=== PATIENT | female | born 1935 | race Caucasian/White ===

== ENCOUNTER 2018-06-01 05:39 | Day surgery (SDC) | payer OTHER, MEDICARE ==
[~2018-06-01] VITALS: Ht 157.5 cm; Wt 56.7 kg
--- NOTE | ~2018-06-01 | EKG ---
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
--- NOTE | ~2018-06-01 | O ---
[facility] [place] [address] OPERATIVE REPORT Name: SAVI PARIS Room #: DEP [facility].#: [id number] Admission: 06/01/18 Attend Phys: Jeanmarie Barajas MD Discharge: 06/01/18 Date of : 33 Report #: [id number] THIS REPORT FOR: //name// CC: GABE physician/PCP FAM unknown Jeanmarie Barajas DATE OF SERVICE: 06/01/2018 PREOPERATIVE DIAGNOSIS: Left foot first tarsometatarsal fusion nonunion. POSTOPERATIVE DIAGNOSIS: Left foot first tarsometatarsal fusion nonunion. PROCEDURE: Left foot first TMT revision arthrodesis with hardware removal. SURGEON: Jeanmarie Barajas M.D. TUBE MOLDER FIBERGLASS: Leora Daugherty. ANESTHESIA: General. ESTIMATED BLOOD LOSS: Minimal. DRAINS: No drains. TOURNIQUET TIME: One hour and 15 minutes. DESCRIPTION OF PROCEDURE: The patient was brought to the operating room, where she was placed under general anesthesia. Once under adequate general anesthesia, her left lower extremity was prepped and draped in sterile manner. The extremity was elevated, exsanguinated and tourniquet placed to 300 mmHg. A dorsal incision on the patient's previous scar was then made. This was dissected down through the soft tissue to the dorsum of the foot, where the prior hardware was placed. The dorsal plate and a single 4.0 cannulated screw were then removed utilizing the screwdriver from the [employer] foot tray and 4.0 cannulated sets. Once removed, the first TMT joint was identified and debrided. It was denuded of any soft tissue and the joint was then fenestrated with a K-wire to allow for bleeding. StimuBlast bone graft was then placed into the joint and fixation across the joint was achieved with crossing 4.0 cannulated screws and a dorsal locking plate from the foot tray. Excellent fixation and alignment was achieved in this manner, as verified under fluoroscopy. The wound was then irrigated copiously and closed with 2-0 Vicryl on the subcutaneous tissues and agustin were used for the skin. The wounds were dressed with Xeroform, 4 x 4s, and a sterile soft compressive dressing was placed. Tourniquet was let down at 1 hour and 15 minutes. Toes were pink and warm, with good capillary refill. There were no complications from the procedure. The [address] [address] OPERATIVE REPORT Name: SAVI PARIS Room #: DEP [facility]#: [id number] Admission: 06/01/18 Attend Phys: Jeanmarie Barajas MD Discharge: 06/01/18 Date of : 33 Report #: [id number] patient tolerated the procedure well and went to the recovery room without incident. <ELECTRONICALLY SIGNED> By: Jeanmarie Barajas MD 06/14/18 1235 [id number] Jeanmarie Barajas MD /thais
[~2018-06-01 05:39] MED LIST: ATORVASTATIN CA40 MG PO; CALCIUM 600 +1 EA11 PO; COUMADIN 1MG TAB1 M1 PO; FOSAMAX 70 MG T70 MG PO; HYDROCHLOROTH12.5 M1 PO; LEVOTHYROXIN0.075 MG PO; LISINOPRIL5 MG PO; MAGOX 400400 MG PO; METFORMIN HCL500 MG PO; NEURONTIN 300300 M1 PO; NORCO 10-325 T1 EACH PO; OXYBUTYNIN 5 MG5 M1 PO; POTASSIUM GLUC500 MG PO; PRESERVISION T1 EACH PO; ROBAXIN 750 MG750 M1 PO; VITAMIN B COMP1 EACH PO
[2018-06-01 06:37] LABS: CALCIUM 9.6 mg/dL (8.5-10.1); CREATININE 0.9 mg/dL (0.6-1.0); POTASSIUM 3.3 mmol/L (3.5-5.1)
[2018-06-01 06:41] LABS: PROTIME 10.7 Seconds (9.3-11.4)
[2018-06-01 07:13] VITALS: BP 174/76
[2018-06-01] MEDS ORDERED: HYDROCODON-ACE1 EAC8 PO (08:49)
[2018-06-01 09:04] VITALS: BP 174/76
== END 2018-06-01 10:15 | disposition home or self-care (01) ==
LOC: TBA 05:39 → OR 05:39
PROVIDERS: Orthopaedic Surgery Foot and Ankle Surgery
DX: M96.0 Pseudarthrosis after fusion or arthrodesis (principal); I10 Essential (primary) hypertension; E78.00 Pure hypercholesterolemia, unspecified; I48.91 Unspecified atrial fibrillation; M19.90 Unspecified osteoarthritis, unspecified site; Z86.73 Personal history of transient ischemic attack (TIA), and cerebral infarction without residual deficits; Z98.41 Cataract extraction status, right eye; Z98.42 Cataract extraction status, left eye; Z90.711 Acquired absence of uterus with remaining cervical stump; Z98.890 Other specified postprocedural states; Z95.0 Presence of cardiac pacemaker; Z79.01 Long term (current) use of anticoagulants; Z96.651 Presence of right artificial knee joint; Z79.899 Other long term (current) drug therapy; Z88.8 Allergy status to other drugs, medicaments and biological substances
CPT/HCPCS: 50010; 50101; 50386; 51122; 51291; 55430; 56524; 56526; 57091; 62110; 62900; 70005